=== PATIENT | female | born 1970 | race Caucasian/White ===

== ENCOUNTER → 2020-08-08 02:03 | Outpatient (CLI) | payer OTHER, SELFPAY ==
[2020-08-08 19:11] LABS: SARS-CoV-2 RNA PCR Negative
== END ==
PROVIDERS: PCP Family Medicine; Visit Provider Internal Medicine Gastroenterology
DX: Z01.812 Encounter for preprocedural laboratory examination (principal); Z20.822 Contact with and (suspected) exposure to COVID-19
CPT/HCPCS: C9803; U0003; U0005

== ENCOUNTER 2020-08-11 01:32 | Day surgery (SDC) | payer OTHER, SELFPAY ==
[2020-07-30 10:47] VITALS: BMI 24.8
[2020-08-11 06:47] VITALS: BP 106/45; PULSE 66; RESP 18; TEMP 36.7; O2SAT 98
[2020-08-11] MEDS: LACTATED RINGERS 1,000 ML 150 ML IV CONT (06:56)
--- NOTE | 2020-08-11 07:12 | WPDANESEPPF ---
Anes - Initial Pre Proc Eval Procedure: Operation Date: 08/11/20 08:00 Proposed Procedures p Screening Colonoscopy - Black Herron MD Date/Time: 08/11/20 07:12 Surgeon: Black Herron MD Pre Op Diagnosis: neoplasm screening Patient Data Age: 49 Gender: F Height: 5 ft 7 in Weight: 76.4 kg Last Vital Signs Temp 36.7 C 08/11/20 06:47 Pulse 66 08/11/20 06:47 Resp 18 08/11/20 06:47 BP 106/45 L 08/11/20 06:47 Pulse Ox 98 08/11/20 06:47 Allergies Allergy/AdvReac Type Severity Reaction Status Date / Time No Known Allergies Allergy Unknown Verified 08/11/20 06:45 Home Medications Medication Instructions Recorded Confirmed Type escitalopram oxalate 10 mg PO DAILY 07/30/20 07/30/20 History estradiol 2 mg PO DAILY 07/30/20 07/30/20 History varenicline [Chantix Starting 1 ea PO DAILY 07/30/20 07/30/20 History Month Box] Patient hx anesthesia problems: none Family hx anesthesia problems: none PMF Past Medical History Medical History Anxiety Hyperlipidemia Social History Social History Years smoked: 25 Smoking status: Current every day smoker Tobacco type: cigarettes Alcohol intake: current Drinks per week: 1 Substance use: never Substance use type: does not use Living arrangements: with family Gender identity (if verbalized by the patient): Female Spiritual care concerns: No Anes - Eval Final PreProcedure Day of Procedure 08/11/20 07:12 Patient weight: overweight Heart: regular rate and rhythm Lungs: decreased breath sounds Airway: Mallampati scale class II Neurological: alert and oriented Last oral intake: >/= 8 hours ASA classification: III Emergent: no Anesthetic plan: proceed Anesthesia type and monitoring: general GIVS and standard monitoring Informed Consent: The patient's anesthetic plan and its attendant risks and benefits were discussed with the patient/family/POA. Questions were solicited and answers provided to the satisfaction of the patient/family/POA.
[2020-08-11 08:13] VITALS: BP 94/45; PULSE 52; RESP 24; O2SAT 98
--- NOTE | 2020-08-11 08:17 | PM.HPGS ---
History of Present Illness History of Present Illness Consent: Risks, benefits, and alternatives have been discussed and questions answered. Patient agrees to proceed with procedure. Chief complaint: neoplasm screening Narrative: Miesha Bonilla is a 49 year old female referred for colon cancer screening, her 1st Review of Systems Review of Systems: All systems reviewed & are unremarkable except as noted in HPI and below PMFSH Past Medical History Medical History Anxiety Hyperlipidemia Social History Social History Years smoked: 25 Smoking status: Current every day smoker Tobacco type: cigarettes Alcohol intake: current Drinks per week: 1 Substance use: never Substance use type: does not use Living arrangements: with family Gender identity (if verbalized by the patient): Female Spiritual care concerns: No Meds Home Medications and Allergies Home Medications Medication Instructions Recorded Confirmed Type Chantix Starting Month Box 1 ea PO DAILY 07/30/20 07/30/20 History escitalopram oxalate 10 mg PO DAILY 07/30/20 07/30/20 History estradiol 2 mg PO DAILY 07/30/20 07/30/20 History Allergies Allergy/AdvReac Type Severity Reaction Status Date / Time No Known Allergies Allergy Unknown Verified 08/11/20 06:45 Vital Signs Vital Signs - 24 hr 08/11/20 06:47 Temperature 36.7 C Pulse Rate 66 Respiratory Rate 18 Blood Pressure 106/45 L Pulse Oximetry 98 Exam Resp: Auscultation: clear to auscultation bilaterally Cardio: Rate: regular rate Rhythm: regular rhythm GI: GI Palp: Yes Soft to palpation and No Tenderness to palpation present (GI) Assessment and Plan Assessment and plan (1) Colon cancer screening: Code(s): Z12.11 - Encounter for screening for malignant neoplasm of colon Status: Acute Assessment and Plan: Colonoscopy with possible biopsy or polypectomy or cautery or injection of substances.
[2020-08-11 08:23] VITALS: BP 98/54; PULSE 49; RESP 16; O2SAT 98
[2020-08-11 08:33] VITALS: BP 93/57; PULSE 52; RESP 18; O2SAT 100
== END 2020-08-11 08:51 | disposition home or self-care (01) ==
PROVIDERS: PCP Family Medicine; Visit Provider Internal Medicine Gastroenterology
PROC: 0DJD8ZZ Inspection of Lower Intestinal Tract, Via Natural or Artificial Opening Endoscopic (ICD-10-PCS; CPT 45378; principal; 2020-08-11 08:00)
DX: Z12.11 Encounter for screening for malignant neoplasm of colon (principal); F41.9 Anxiety disorder, unspecified; E78.5 Hyperlipidemia, unspecified; F17.210 Nicotine dependence, cigarettes, uncomplicated
CPT/HCPCS: 45378; C9803; J2704; J7120; U0003; U0005

== ENCOUNTER 2022-10-31 11:38 | Emergency (ER) | payer OTHER, SELFPAY ==
[2022-10-31 11:46] VITALS: BP 103/62; PULSE 80; RESP 16; TEMP 37.7; O2SAT 100
--- NOTE | 2022-10-31 11:48 | ED.URI ---
HPI - URI/Sore Throat General Chief Complaint: Upper Respiratory Infection Stated Complaint: sinus pressure,headache,cough Time Seen by Provider: 10/31/22 12:05 Source: patient and RN notes reviewed Mode of arrival: ambulatory Limitations: no limitations History of Present Illness HPI Narrative: 51-year-old female presents with concern for 4 day history of sinus congestion, pressure, ear pressure, cough, watery eye. She reports she went to a national conference and came home and started having the symptoms. She had two negative COVID test at home. She reports she has been taking ibuprofen without relief. MD elicited complaint: cough, nasal congestion and sinus pain Related Data Home Medications Medication Instructions Recorded Confirmed escitalopram oxalate 10 mg tablet 10 mg PO DAILY 07/30/20 10/31/22 estradiol 1 mg tablet 2 mg PO DAILY 07/30/20 10/31/22 Allergies Allergy/AdvReac Type Severity Reaction Status Date / Time No Known Allergies Allergy Unknown Verified 10/31/22 11:49 Review of Systems Review of Systems: CONSTITUTIONAL: Reports malaise, chills, sweats EYES: Denies visual changes, redness, or discharge. ENT: Reports rhinorrhea, congestion, sinus pain, otalgia. Denies sore throat. CARDIOVASCULAR: Denies chest pain, palpitations, or edema. RESPIRATORY: Reports cough. Denies dyspnea. GASTROINTESTINAL: Denies abdominal pain, nausea, vomiting, diarrhea SKIN: Denies rash or itching. MUSCULOSKELETAL: Reports myalgia. NEUROLOGIC: Denies headache. All systems reviewed & are unremarkable except as noted in HPI and below PMFSH Past Medical History Medical History (Updated 10/31/22 @ 12:13 by Yara Arizmendi NP) Abdominal cramping Altered bowel habits Anxiety Bloating Hyperlipidemia Irritable bowel syndrome with alternating bowel habits Tobacco abuse Social History Social History Years smoked: 25 Smoking status: Current every day smoker Tobacco type: cigarettes Alcohol intake: current Drinks per week: 1 Substance use: never Substance use type: does not use Living arrangements: with family Gender identity (if verbalized by the patient): Female Spiritual care concerns: No Comments At time of signature, agree with nursing past medical, surgical, social and family history. There is no relevant family history pertinent to the presenting complaint Exam Narrative: GENERAL: Nontoxic-appearing and in no acute distress. HEAD: Normocephalic EYES: PERRLA, conjunctivae clear ENT: Nares clear, turbinates edematous and erythematous, clear discharge. Mucous membranes moist. TM pearly velasco with dull light reflex bilaterally; no tragal tenderness. Oropharynx not erythematous without lesions. Tonsils not enlarged and without exudate, no drooling, no hoarseness, no trismus, uvula midline. NECK: Supple. No lymphadenopathy CHEST: Clear to auscultation, breath sounds equal. No wheezing, rhonchi, rales, or stridor. No respiratory distress, speaks in full sentences. Cough noted HEART: Regular rate and rhythm. No murmur heard. SKIN: Warm, dry, no rash. NEURO: Alert and oriented x3. PSYCH: Normal mood and affect Course Course Emergency Course: Patient is aware of diagnosis, understands and agrees to treatment plan. Anticipatory guidance given. Patient agrees to follow-up as directed and is aware of reasons to seek care at the emergency department. Portions of this record may have been created with voice recognition software Level of Care: Express Care Visit Vital Signs Vital signs: Vital Signs Temperature 99.8 F H 10/31/22 11:46 Pulse Rate 80 10/31/22 11:46 Respiratory Rate 16 10/31/22 11:46 Blood Pressure 103/62 10/31/22 11:46 Pulse Oximetry 100 10/31/22 11:46 Temperature 99.8 F H 10/31/22 11:46 Pulse Rate 80 10/31/22 11:46 Respiratory Rate 16 10/31/22 11:46 Blood Pressure 103/62 10/31/22 11:
== END 2022-10-31 12:15 | disposition home or self-care (01) ==
PROVIDERS: Emergency Provider Nurse Practitioner; PCP Family Medicine
DX: J32.9 Chronic sinusitis, unspecified (principal); J40 Bronchitis, not specified as acute or chronic; F17.210 Nicotine dependence, cigarettes, uncomplicated; E78.5 Hyperlipidemia, unspecified; F41.9 Anxiety disorder, unspecified
CPT/HCPCS: 87081; 87804; 87880; 99213; G0463